=== PATIENT | female | born 1990 | race Native Hawaiian/Other Pacific Islander ===

== ENCOUNTER 2020-02-18 17:07 | Emergency (ER) | payer OTHER ==
[~2020-02-18] VITALS: Ht 162.6 cm; Wt 65.8 kg
[~2020-02-18 17:07] MED LIST: CALC600T56 PO; FERR325E14 PO; PREN-385 PO
[2020-02-18 17:14] VITALS: BP 91/53
--- NOTE | 2020-02-18 17:30 | NUR ---
29 YEAR OLD FEMALE THAT IS 15 WEEKS COMPLAINS OF UNCONTROLLED VOMITTING SINCE STARTED. PT STATES SHE HAS SEEN OB DOCTOR AND TOLD HERE TO COME HERE. HEART TONE 140. PT DENIES ANY PAIN. PT STATES SHE HAS BEEN UNABLE TO KEEP ANY FOOD OR DRINKS DOWN. PT AOX4, BREATHING EVEN AND UNLABORED, SKIN WARM AND DRY. BED IN LOWEST POSITION, LOCKED, BED RAIL UPX1. PMH - DENIES ALLERGIES - NKA
[2020-02-18] MEDS ORDERED: METOCLOPRAMIDE 10 MG/2 ML INJ VIAL IVP ONE (17:35)
[2020-02-18] MEDS ORDERED: NACL 0.9% 1,000 ML IV ONE ×2 (17:35→18:10)
[2020-02-18 17:51] LABS: APPEARANCE,URINE CLEAR (CLEAR); BILIRUBIN,URINE NEGATIVE (NEGATIVE); BLOOD, URINE NEGATIVE (NEGATIVE); COLOR,URINE YELLOW (YELLOW); LEUKOCYTE ESTERASE ,URINE 2+ (NEGATIVE); NITRITE, URINE NEGATIVE (NEGATIVE); UGLUCOSE NEGATIVE (NEGATIVE)
[2020-02-18 17:51] LABS: BASOPHILS % (AUTO) 0.3 % (0.0-2.0); EOSINOPHILS # (AUTO) 0.1 K/uL (0-0.4); EOSINOPHILS % (AUTO) 0.9 % (0.0-4.0); HEMATOCRIT 33.9 % (36-48); HEMOGLOBIN 11.6 g/dL (12.0-16.0); LYMPHOCYTES # (AUTO) 1.9 K/uL (2.5-16.5); LYMPHOCYTES % (AUTO) 20.5 % (20.5-51.1); MEAN CORPUSCULAR HEMOGLOBIN 29 pg (27-31); MEAN CORPUSCULAR HGB CONC 34 g/dL (33-37); MEAN CORPUSCULAR VOLUME 83.3 fL (80-94); MONOCYTES # (AUTO) 0.5 K/uL (0.8-1.0); MONOCYTES % (AUTO) 5.3 % (1.7-9.3); NEUTROPHILS # (AUTO) 6.8 K/uL (1.8-7.7); PLATELET COUNT (AUTO) 273 K/uL (140-450); RED BLOOD CELL COUNT(AUTO) 4.07 MIL/uL (4.20-5.40); RED CELL DISTRIBUTION WIDTH 12.5 % (11.6-13.7); WHITE BLOOD COUNT (AUTO) 9.4 K/uL (4.8-10.8)
[2020-02-18 17:58] LABS: RBC,URINE 0-5 /HPF (0-5)
[2020-02-18 18:01] LABS: COARSE GRANULAR CASTS,URINE 0-10 /LPF (None Seen)
[2020-02-18 18:03] LABS: ALBUMIN 2.9 g/dL (3.4-5.0); ANION GAP 14.5 (8-16); CARBON DIOXIDE 23.4 mmol/L (21-32); CREATININE 0.6 mg/dL (0.6-1.3); POTASSIUM 3.9 mmol/L (3.5-5.1); TOTAL BILIRUBIN 0.3 mg/dL (0.0-1.0)
[2020-02-18] MEDS ORDERED: cefTRIAXone 1,000 MG VIAL ONE (18:16)
--- NOTE | 2020-02-18 19:02 | NUR ---
PT ALERT AND AWAKE, BREATHING EVEN AND UNLABORED. PT STATES NO NAUSEA, HAS BEEN DRINKING WATER
--- NOTE | 2020-02-18 19:11 | NUR ---
REPORT GIVEN TO CORINE ARIAS, TRANSFER OF CARE AT THIS TIME
--- NOTE | 2020-02-18 19:14 | NUR ---
REPORT RECEIVED FROM CHUY ARIAS
--- NOTE | 2020-02-18 19:22 | NUR ---
PT RESTING COMFORTABLY AT THIS TIME, DENIES ANY N/V. NS CONTINUES TO INFUSE
[2020-02-18 20:11] VITALS: BP 101/50
--- NOTE | 2020-02-18 20:12 | NUR ---
Patient discharged with v/s stable. Written and verbal after care instructions given and explained. Patient alert, oriented and verbalized understanding of instructions. Ambulatory with steady gait. All questions addressed prior to discharge. ID band removed. Patient advised to follow up with PMD. Rx of REGLAN, DICLEGIS, AND CEPHALEXIN given. Patient educated on indication of medication including possible reaction and side effects. Opportunity to ask questions provided and answered.
== END 2020-02-18 20:12 | disposition home or self-care (01) ==
LOC: MED 17:07
DX: O21.0 Mild hyperemesis gravidarum (principal); O23.90 Unspecified genitourinary tract infection in pregnancy, unspecified trimester; Z3A.16 16 weeks gestation of pregnancy; Z79.899 Other long term (current) drug therapy
CPT/HCPCS: 36415; 80053; 81001; 81025; 85025; 87086; 96365; 96375; 99284; J0696; J2765; J7030

== ENCOUNTER 2020-07-14 22:30 | Observation (INO) | payer OTHER, SELFPAY | END 2020-07-14 23:55 | disposition home or self-care (01) | LOC: MLD 22:30 | PROVIDERS: ADMIT Obstetrics & Gynecology; ATTEND Obstetrics & Gynecology | DX: O42.92 Full-term premature rupture of membranes, unspecified as to length of time between rupture and onset of labor (principal); O48.0 Post-term pregnancy; O62.9 Abnormality of forces of labor, unspecified; Z3A.40 40 weeks gestation of pregnancy | CPT/HCPCS: G0378 ==

== ENCOUNTER 2022-07-22 03:06 | Emergency (ER) | payer OTHER ==
[~2022-07-22] VITALS: Ht 162.6 cm; Wt 80.7 kg
[~2022-07-22 03:06] MED LIST changes: -CALC600T56 PO
[2022-07-22 03:23] VITALS: BP 125/71
--- NOTE | 2022-07-22 03:25 | NUR ---
TO LOBBY A/W BED AMBULATORY
--- NOTE | 2022-07-22 05:20 | NUR ---
Dr. Tolentino by bedside
--- NOTE | 2022-07-22 05:50 | NUR ---
Xray by bedside.
[2022-07-22] MEDS ORDERED: NAPR-54 PO (06:19)
[2022-07-22] MEDS ORDERED: ROBAC PO (06:19)
[2022-07-22 06:53] VITALS: BP 120/60
--- NOTE | 2022-07-22 06:53 | NUR ---
Patient discharged with v/s stable. Written and verbal after care instructions given and explained. New rx for naproxen and guaifinesen-codeine. Patient verbalized understanding. Ambulatory with steady gait. All questions addressed prior to discharge. Advised to follow up with PMD.
== END 2022-07-22 06:52 | disposition home or self-care (01) ==
LOC: MED 03:06
DX: B34.9 Viral infection, unspecified (principal); R05.9 Cough, unspecified; Z79.899 Other long term (current) drug therapy
CPT/HCPCS: 71045; 99283; Q0092